=== PATIENT | male | born 1975 | race Hispanic/Latino ===

== ENCOUNTER 2021-03-05 10:00 | Emergency (ER) | payer SELFPAY ==
--- NOTE | 2021-03-05 10:19 | Event Note ---
ED Screening Note ED Screening Note: ill appearing male severe abd pain pallor heroin use today BM Wednesday- difficult to go pos dysuria and flank pain ruq tenderness on exam This initial assessment/diagnostic orders/clinical plan/treatment(s) is/are subject to change based on patients health status, clinical progression and re-assessment by fellow clinical providers in the ED. Further treatment and workup at subsequent clinical providers discretion. Patient/guardian urged not to elope from the ED as their condition may be serious if not clinically assessed and managed. Initial orders include: labs us
[2021-03-05 10:43] LABS: Bilirubin,Urine NEG (Negative); Blood,Urine NEG (Negative); Color,Urine Yellow (Yellow); Mucus,Urine 3+ /HPF; Urobilinogen,Urine < 2.0 mg/dL (<2.0); WBC,Urine < 1.0 /HPF (0.0-6.0)
[2021-03-05 10:49] LABS: Amphetamine Screen,Urine Negative; Methadone Screen,Urine Negative; Opiate Screen,Urine Negative
[2021-03-05 11:05] LABS: Benzodiazepines Screen,Urine Negative
[2021-03-05 11:09] LABS: Cannabinoid Screen,Urine PRESUMPTIVE POSITIVE; Cocaine Screen,Urine PRESUMPTIVE POSITIVE
[2021-03-05 11:10] LABS: Basophils # (Auto) 0.1 K/mm3 (0.0-0.1); Basophils % (Auto) 1.1 % (0.0-1.8); Eosinophils # (Auto) 0.4 K/mm3 (0.0-0.4); Eosinophils % (Auto) 5.9 % (0.0-4.3); Hemoglobin 14.7 gm/dl (11.8-15.2); Lymphocytes # (Auto) 1.6 K/mm3 (1.2-5.4); Mean Corpuscular HGB Conc 34 % (32-34); Mean Corpuscular Volume 96 fl (84-94); Monocytes # (Auto) 0.4 K/mm3 (0.0-0.8); Monocytes % (Auto) 6.4 % (0.0-7.3); Platelet Count 223 K/mm3 (140-440); Red Blood Count 4.49 M/mm3 (3.65-5.03)
--- NOTE | 2021-03-05 11:37 | XRay Report ---
ABDOMINAL SERIES WITH CHEST X-RAY HISTORY: Abdominal pain, constipation COMPARISON: None. IMPRESSION: Single view of the chest is unremarkable demonstrating clear lungs and unremarkable heart and mediastinal structures. Supine and upright views the abdomen demonstrate an unremarkable bowel g as pattern. No dilated bowel, fluid levels or free air. There appears to be normal stool in the colon . No abnormality is appreciated. Signer Name: Jean Carlos Carolina Jr, MD Signed: 03/05/2021 11:33 AM Workstation Name: [id number]
[2021-03-05 11:53] LABS: Alanine Aminotransferase 30 units/L (7-56); Albumin 4.5 g/dL (3.9-5); BUN/Creatinine Ratio 10; Blood Urea Nitrogen 10 mg/dL (9-20); Calcium 9.8 mg/dL (8.4-10.2); Hemolysis Index 3
[2021-03-05 12:01] LABS: Bilirubin,Direct < 0.2 mg/dL (0-0.2)
--- NOTE | 2021-03-06 17:46 | Electrocardiograph Report ---
[facility] Test Date: 2021-03-05 Test Time: 11:30:19 Pat Name: EZE QUINN Department: Room: Gender: M [employer]: ANDRADE : 1975 Requested By: ALEXEI HURST Order Number: [id number] Reading MD: Melecio Ruiz Measurements Intervals [place] Rate: 48 P: 58 GA: 142 QRS: 68 QRSD: 91 T: 6 QT: 439 QTc: 391 Interpretive Statements Sinus bradycardia Probable left atrial enlargement No previous ECG available for comparison Electronically Signed On 03-06-2021 17:46:16 EDT by Melecio Ruiz
== END 2021-03-05 16:43 | disposition left against medical advice (07) ==
LOC: ED 10:00
DX: R10.9 Unspecified abdominal pain (principal); Z53.21 Procedure and treatment not carried out due to patient leaving prior to being seen by health care provider
CPT/HCPCS: 36415; 74022; 80048; 80076; 80307; 81001; 83690; 84484; 85025; 93005